=== PATIENT | male | born 1960 | race Caucasian/White ===

== ENCOUNTER 2020-07-18 11:06 | Inpatient (IN) | payer OTHER, SELFPAY ==
[~2020-07-18] VITALS: Ht 165.1 cm; Wt 110.2 kg
[2020-07-18 11:09] VITALS: BP 137/85
--- NOTE | 2020-07-18 11:38 | NUR ---
resident MD bedside for examination
--- NOTE | 2020-07-18 11:43 | NUR ---
60 Y.O presents to the ED with SOB. Pt reports went to physician for swelling of bilateral lower extremeties and MD told pt to come to the ED. Pt bilateral lower extremeties are swollen x2 and pitting +1. SOB when laying flat, trouble sleeping, and upon exertion. Pt dry non-productive cough, lungs clear on auscultation. AAOx4. denies c/p. PMH: hypertension, heart murmur, gout Allergies: nka
[2020-07-18] MEDS ORDERED: ASPIRIN 325 MG TAB PO ONE (11:50)
--- NOTE | 2020-07-18 11:55 | NUR ---
labor representative at bedside drawing blood
--- NOTE | 2020-07-18 11:57 | NUR ---
RISSA and resident MD at bedside for examination
[2020-07-18] MEDS ORDERED: FUROSEMIDE 40 MG/4 ML VIAL IVP SCH (12:00)
--- NOTE | 2020-07-18 12:03 | NUR ---
heraclio swabbed acquired, given to [facility]anj[facility] lab
--- NOTE | 2020-07-18 12:04 | NUR ---
xray at bedside
[2020-07-18 12:09] LABS: BASOPHILS % (AUTO) 0.3 % (0.0-2.0); EOSINOPHILS # (AUTO) 0.2 K/uL (0-0.4); EOSINOPHILS % (AUTO) 3.2 % (0.0-4.0); HEMATOCRIT 43.2 % (36-52); HEMOGLOBIN 14.2 g/dL (12.0-18.0); LYMPHOCYTES # (AUTO) 1.5 K/uL (2.0-11.5); LYMPHOCYTES % (AUTO) 19.2 % (20.5-51.1); MEAN CORPUSCULAR HEMOGLOBIN 32 pg (27-31); MEAN CORPUSCULAR HGB CONC 33 g/dL (33-37); MEAN CORPUSCULAR VOLUME 96.2 fL (80-94); MONOCYTES # (AUTO) 0.7 K/uL (0.8-1.0); MONOCYTES % (AUTO) 8.9 % (1.7-9.3); NEUTROPHILS # (AUTO) 5.2 K/uL (1.8-7.7); NEUTROPHILS % (AUTO) 68.4 % (42.2-75.2); PLATELET COUNT (AUTO) 180 K/uL (140-450); RED BLOOD CELL COUNT(AUTO) 4.49 MIL/uL (4.20-6.10); RED CELL DISTRIBUTION WIDTH 15.1 % (11.6-13.7); WHITE BLOOD COUNT (AUTO) 7.6 K/uL (4.8-10.8)
--- NOTE | 2020-07-18 12:14 | NUR ---
pt ambulated to the bathroom for urine collection
[2020-07-18 12:23] LABS: ALBUMIN 3.7 g/dL (3.4-5.0); ANION GAP 13.1 (8-16); CARBON DIOXIDE 26.7 mmol/L (21-32); CREATININE 1.4 mg/dL (0.6-1.3); POTASSIUM 3.8 mmol/L (3.5-5.1); TOTAL BILIRUBIN 1.1 mg/dL (0.0-1.0)
[2020-07-18] MEDS ORDERED: NITROGLYCERIN 0.4 MG TAB SL ONE ×2 (12:35→13:10)
--- NOTE | 2020-07-18 12:39 | NUR ---
RT at bedside for bipap
[2020-07-18] MEDS ORDERED: HYDR-4004 PO (12:43)
[2020-07-18] MEDS ORDERED: ATOR80TA27 PO (12:43)
[2020-07-18] MEDS ORDERED: LOSA100T1 PO (12:44)
[2020-07-18] MEDS ORDERED: ZYL300 PO (12:44)
--- NOTE | 2020-07-18 12:50 | NUR ---
pt family updated on pt condition in the lobby. Talked to and son. contact son if there are questions, and follow-up on condition: Chris
--- NOTE | 2020-07-18 13:00 | NUR ---
notified of lactic acid and high bp
[2020-07-18 13:08] LABS: BARBITURATE, URINE NEGATIVE ng/ml (NEG <=200); BENZODIAZEPINE, URINE NEGATIVE ng/mL (NEG <=200); CANNABINOID, URINE NEGATIVE ng/mL (NEG <=50); COCAINE, URINE NEGATIVE ng/mL (NEG <=300); OPIATE, URINE NEGATIVE ng/mL (NEG <=2000); PHENCYCLIDINE SCREEN,URINE NEGATIVE ng/mL (NEG <=25)
[2020-07-18] MEDS ORDERED: PIPERACILLIN/TAZOBACTAM 3.375 GM in DEXTROSE 5% 50 ML IV ONE (13:10)
[2020-07-18] MEDS ORDERED: PIPERACILLIN/TAZOBACTAM 3.375 GM VIAL IV ONE (13:12)
[2020-07-18] MEDS ORDERED: HEPARIN PER PHARMACY MC PRN (14:15)
[2020-07-18] MEDS ORDERED: hePARIN / DEXT 5% PREMIX 250 ML IV ONE (14:15)
--- NOTE | 2020-07-18 15:28 | NUR ---
PT GOING TO CT VIA GURNEY, DISCONNECTED FROM BIPAP MACHINE, AND HEPARIN DRIP
--- NOTE | 2020-07-18 15:33 | NUR ---
report called to LILIBETH Gautam for pt
--- NOTE | 2020-07-18 15:37 | NUR ---
RECEIVED REPORT FROM ER NURSE TARIK. PATIENT PENDING TRANSFER TO UNIT. CC: SOB SENT STRAIGHT FROM PCP OFFICE; DX: NEW ONSET CHF; HX: HTN, GOUT, HEART MURMUR; NKA. PATIENT IS AMBULATORY W/ BLE SWELLING AND PITTING EDEMA 1+; AOx4, ON BIPAP AT FIO2 30%. PATIENT IS CONTINENT, LAC 20G IV. V/S: BP 109/76, RR 18, PULSE 139, TEMP 97.8, SPO2 100, DENIES PAIN. PATIENT HAS DRY NONPRODUCTIVE COUGH. PENDING PATIENT ARRIVAL TO UNIT.
[2020-07-18 15:45] VITALS: BP 141/103
--- NOTE | 2020-07-18 15:45 | NUR ---
PATIENT ARRIVED ON UNIT. PATIENT ORIENTED TO ROOM, CALL LIGHT W/IN REACH, PATIENT GIVEN ORAL CARE AND HYGIENE ESSENTIALS. V/S OBTAINED BP: 141/103, RR 17, PULSE 135, TEMP 97.8, SPO2 99. HEAD TO TOE ASSESSMENT PERFORMED. PATIENT BLE SWELLING, REDNESS, PITTING EDEMA 1+. NO OEN WOUNDS, SKIN TEARS, BRUISING. PATIENT DENIES PAIN. MRSA SWAB OBTAINED. RT AT BEDSIDE W/ PATIENT INSTRUCTIONS FOR BIPAP. SAFETY MEASURES IN PLACE. WILL CONTINUE TO MONITOR.
--- NOTE | 2020-07-18 15:52 | NUR ---
attached pt back to the heparin drip and the bipap machine
--- NOTE | 2020-07-18 16:08 | NUR ---
Patient will be admitted to care of Dr. Constantino. Admited to TELEMETRY. Will go to room 112A. Belongings list completed. Report to LILIBETH MICHAUD.
--- NOTE | 2020-07-18 16:28 | NUR ---
PT TRANSFERRED TO FLOOR WITH BIPAP AND PLACED BACK ON BIPAP IN HIS NEW ROOM. NO DISTRESS NOTED. PT PLACED ON BIPAP FOR FLUID ASSESSMENT NOT RESP DISTRESS.
[2020-07-18] MEDS ORDERED: hydrALAZINE 20 MG/ML VIAL IVP PRN (17:00)
--- NOTE | 2020-07-18 17:43 | NUR ---
ADMINISTERED PRN MEDS FOR BP 141/103. PATIENT TOLERATED WELL. MEDICATION EDUCATION PROVIDED. PATIENT VERBALIZED UNDERSTANDING. PATIENT DENIES PAIN. STATES FEELING FINE. PATIENT IS ABLE TO MAKE NEEDS KNOWN. SAFETY MEASURES IN PLACE. WILL CONTINUE TO MONITOR.
[2020-07-18] MEDS: PIPERACILLIN/TAZOBACTAM 3.375 GM in DEXTROSE 5% 50 ML IV SCH (18:59)
--- NOTE | 2020-07-18 19:35 | NUR ---
RECEIVED PT AAOX4 , ON BI PAP - O2SAT WNL . ST ON TELE MONITOR . DENIES ANY PAIN AT THIS TIME . IV SITES INTACT AND PATENT . ON HEP DRIP - TOLERATING NO S/SX OF BLEEDING NOTED AT THIS TIME - THE NEXT PTT IS 2120 WILL REGULATE THE HEP DRIP PER PROTOCOL . SAFETY MEASURES IN PLACE - CALL LIGHT / URINAL WITHIN REACH. WILL CONT. TO MONITOR .
--- NOTE | 2020-07-18 19:35 | NUR ---
BEDSIDE ENDORSEMENT PROVIDED TO NIGHTSHIFT NURSE FOR CONTINUITY OF CARE.
[2020-07-18 20:00] VITALS: BP 124/83
--- NOTE | 2020-07-18 20:13 | NUR ---
PT IN NO DISTRESS, PT SATURATION 100% ON MINIMAL SETTINGS, REMOVED BI-PAP FOR PT TO EAT, PT PLACED ON A 2L N/C, PT SATURATION MAINTAINED AT 98%. WILL KEEP PT OFF BI-PAP IF SATURATION MAINTAINS ABOVE 92%. WILL CONTINUE TO MONITOR, INFORMED RN OF BI-PAP IN ROOM ON STANDBY
[2020-07-18] MEDS ORDERED: ONDANSETRON 4 MG/2 ML VIAL IM/IVP PRN (20:30)
[2020-07-18] MEDS ORDERED: MORPHINE SULFATE 2 MG/ML SYR IVP PRN (20:30)
[2020-07-18] MEDS ORDERED: ACETAMINOPHEN 325 MG TAB PO PRN (20:30)
[2020-07-18] MEDS ORDERED: DOCUSATE SODIUM 100 MG GELCAP PO PRN (20:30)
[2020-07-18] MEDS ORDERED: HYDROcodone/APAP 5/325 MG 1 TAB TAB PO PRN (20:30)
[2020-07-18] MEDS ORDERED: POTASSIUM CHLORIDE 40 MEQ, LIDOCAINE MPF 1% 25 MG in NACL 0.9% 250 ML IV PRN (20:30)
[2020-07-18] MEDS ORDERED: SODIUM PHOS / POTASSIUM PHOS 1 PKT PDR PO PRN (20:30)
[2020-07-18] MEDS ORDERED: MAG SULF 2000 MG/WATER PREMIX 50 ML IV PRN (20:30)
[2020-07-18 20:58] LABS: MAGNESIUM 1.6 mg/dL (1.8-2.4)
[2020-07-18] MEDS: METOPROLOL 25 MG TAB PO SCH (21:33)
[2020-07-18] MEDS: hePARIN / DEXT 5% PREMIX 250 ML IV SCH (21:34)
--- NOTE | 2020-07-18 21:34 | NUR ---
REDUCE HEP DRIP REGULATION BY 2 - SO - 13 ML /HR .
[2020-07-18 21:49] LABS: APPEARANCE,URINE CLEAR (CLEAR); BILIRUBIN,URINE NEGATIVE (NEGATIVE); BLOOD, URINE TRACE-I (NEGATIVE); COLOR,URINE YELLOW (YELLOW); LEUKOCYTE ESTERASE ,URINE NEGATIVE (NEGATIVE); NITRITE, URINE NEGATIVE (NEGATIVE); UGLUCOSE NEGATIVE (NEGATIVE)
[2020-07-18] MEDS ORDERED: MAG SULF 2000 MG/WATER PREMIX 100 ML IV ONE (22:05)
[2020-07-18 22:18] LABS: RBC,URINE 0-5 /HPF (0-5); WBC,URINE 0-5 /HPF (0-5)
[2020-07-18 22:19] LABS: HYALINE CASTS, URINE 0-5 /LPF (None Seen)
[2020-07-18] MEDS ORDERED: DEXTROSE 50% 50 ML SYR IVP PRN (22:35)
--- NOTE | 2020-07-18 23:51 | NUR ---
THE FRIST 2GRM MAG RIDER CONSUMED . FF UP W/ 2ND BAG ( 2 GRMS ) MAG RIDER . WILL CONT. TO MONITOR .
[2020-07-19] VITALS: BP 124/84
[2020-07-19] MEDS: PIPERACILLIN/TAZOBACTAM 3.375 GM in DEXTROSE 5% 50 ML IV SCH ×2 (01:10→06:37)
--- NOTE | 2020-07-19 01:36 | NUR ---
UPDATING DR. SANCHEZ - PT IS STILL ST 130'S INSPITE OF LOPRESSOR GIVEN , ALTHOUGH PT IS RESTING ON BED COMFORTABLY , NO COMPLAIN MADE , CLEAR U.O , BP 124/ 83 , O2 SAT WNL . Addendum: 07/19/20 at 0143 by Afua Leigh RN PER DR. SANCHEZ IF THE PT IS STILL ST FOR ANOTHER HOUR - GIVE METOPROLOL 5MG/ TIV PUSH .
[2020-07-19] MEDS ORDERED: METOPROLOL 5 MG/5 ML VIAL IV ONE (02:35)
[2020-07-19] MEDS ORDERED: METOPROLOL 5 MG/5 ML VIAL IV SCH (02:50)
--- NOTE | 2020-07-19 03:20 | NUR ---
PT STILL ST ON TELE MONITOR - WILLL GIVE LOPRESSOR 5MG TIV ORDERED BY DR. SANCHEZ . DENIES ANY PAIN . RESTING ON BED .
[2020-07-19 04:00] VITALS: BP 129/85
[2020-07-19] MEDS: hePARIN / DEXT 5% PREMIX 250 ML IV SCH ×2 (05:00→10:22)
--- NOTE | 2020-07-19 05:04 | NUR ---
HEP DRIP RATE REDUCED PER PTT PROTOCOL . WILLL CONT. TO MONITOR .
[2020-07-19] MEDS: BLOOD GLUCOSE MONITORING 1 DEV DEV FS SCH ×4 (05:30→21:46)
--- NOTE | 2020-07-19 06:00 | NUR ---
RESTING ON BED , STILL ST - METROPROLOL GIVEN WHILE AGO - WILL TO MONITOR , NO COMPLAIN MADE .
[2020-07-19 06:34] LABS: HEMOGLOBIN 12.8 g/dL (12.0-18.0)
[2020-07-19 06:56] LABS: BASOPHILS % (AUTO) 0.4 % (0.0-2.0); EOSINOPHILS # (AUTO) 0.1 K/uL (0-0.4); EOSINOPHILS % (AUTO) 0.9 % (0.0-4.0); HEMATOCRIT 38.2 % (36-52); LYMPHOCYTES # (AUTO) 0.7 K/uL (2.0-11.5); MEAN CORPUSCULAR HEMOGLOBIN 32 pg (27-31); MEAN CORPUSCULAR HGB CONC 34 g/dL (33-37); MEAN CORPUSCULAR VOLUME 94.6 fL (80-94); MONOCYTES # (AUTO) 0.7 K/uL (0.8-1.0); MONOCYTES % (AUTO) 8.3 % (1.7-9.3); NEUTROPHILS # (AUTO) 6.5 K/uL (1.8-7.7); NEUTROPHILS % (AUTO) 81.4 % (42.2-75.2); PLATELET COUNT (AUTO) 166 K/uL (140-450); RED BLOOD CELL COUNT(AUTO) 4.04 MIL/uL (4.20-6.10); RED CELL DISTRIBUTION WIDTH 15.1 % (11.6-13.7)
[2020-07-19 07:23] LABS: ANION GAP 11.1 (8-16); CARBON DIOXIDE 27.9 mmol/L (21-32); CREATININE 1.3 mg/dL (0.6-1.3)
--- NOTE | 2020-07-19 07:30 | NUR ---
RECEIVED REPORT FROM NIGHT NURSE PATIENT IS AAOX4 ON 2 LPM OXYGEN VIA NC SATURATION AT 99%. SKIN INTACT PT ON BEDREST. LATEST BLOOD SUGAR 123 MG/DL USES THE URINAL, IV INTACT ON LEFT AC WITH HEPARIN DRIP AT 11 UNITS AND RIGHT AC TKO.SCHEDULED APTT AT 0933. SAFETY MEASURES IN PLACE AND CALL LIGHT WITHIN REACH. WILL CONTINUE TO MONITOR.
--- NOTE | 2020-07-19 07:38 | NUR ---
ENDORSED TO TAMRA NURSE - PT - STABLE . Addendum: 07/19/20 at 0744 by Afua Leigh RN GAVE AN UPDATE TO DR SANCHEZ THRU TXT - PT - STILL ST - ENDORSED TO JOSE RAMON TO WAIT THE FURTHER ORDER OF DR Doc SANCHEZ .
--- NOTE | 2020-07-19 07:49 | NUR ---
RECEIVED CRITICAL LAB TROPONIN 0.363 MD AWARE.
[2020-07-19 08:00] VITALS: BP 117/81
--- NOTE | 2020-07-19 08:25 | NUR ---
PATIENT HAS BEEN SCREENED AND CATEGORIZED MODERATE NUTRITION RISK. PATIENT WILL BE SEEN WITHIN 3-5 DAYS OF ADMISSION. 07/20/20 07/22/[address]
[2020-07-19] MEDS: METOPROLOL 25 MG TAB PO SCH ×2 (08:48→21:48)
[2020-07-19] MEDS: ATORVASTATIN 80 MG TAB PO SCH (08:48)
--- NOTE | 2020-07-19 08:50 | NUR ---
MEDICATION DUE GIVEN CHECK VITAL SIGNS PRIOR TO MEDICATION BP 117/81 MT 134 PT DENIES CHEST PAIN AND SOB, PT IS STABLE. WILL CONTINUE TO MONITOR.
[2020-07-19] MEDS ORDERED: LOSARTAN 50 MG TAB PO SCH (09:00)
--- NOTE | 2020-07-19 10:22 | NUR ---
CHANGE HEPARIN DRIP 250 ML AR A RATE OF 11 ML/HR. INFUSING WELL.
--- NOTE | 2020-07-19 10:30 | NUR ---
ECHOCARDIOGRAM TAKEN PT IS STABLE.
--- NOTE | 2020-07-19 10:47 | NUR ---
RECEIVE CRITICAL LAB APTT 61.2 NO CHANGED IN HEPARIN DRIP.
[2020-07-19] MEDS: METOPROLOL 5 MG/5 ML VIAL IV PRN ×2 (11:08→17:32)
--- NOTE | 2020-07-19 11:08 | NUR ---
LOPRESSOR 5 MG IV GIVEN BP 121/82 WI 134. PATIENT IS SLEEPING
[2020-07-19] MEDS ORDERED: FUROSEMIDE 40 MG TAB PO SCH (11:10)
--- NOTE | 2020-07-19 11:30 | NUR ---
BLOOD SUGAR 153 MG/DL INSULIN COVERAGE 2 UNITS GIVEN AND LASIX 40 MG GIVEN.
[2020-07-19] MEDS: INSULIN LISPRO SLIDING SCALE 100 UNITS/ML VIAL SUBQ PRN (11:36)
[2020-07-19 12:00] VITALS: BP 102/72
--- NOTE | 2020-07-19 12:08 | NUR ---
RE ASSESSED PT VITAL SIGNS BP 114/88 FL 133.
[2020-07-19 16:00] VITALS: BP 123/81
--- NOTE | 2020-07-19 16:06 | NUR ---
BLOOD SUGAR 121 MG/DL NO INSULIN COVERAGE GIVEN.
--- NOTE | 2020-07-19 16:18 | NUR ---
RECEIVE CRITICAL VALUE FROM LAB APTT 65.1 2ND THERAPEUTIC LEVEL NO CHANGED IN HEPARIN DRIP. NEXT APTT DRAW 07/20/20 AT 1600.
--- NOTE | 2020-07-19 17:00 | NUR ---
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
[2020-07-19] MEDS ORDERED: DIGOXIN 0.25 MG/ML AMP IV SCH (17:20)
--- NOTE | 2020-07-19 17:34 | NUR ---
LOPRESSOR 5 MG IV Q4H PRN GIVEN CHECK VITAL SIGNS BP 119/80 PA 134.
--- NOTE | 2020-07-19 18:00 | NUR ---
DIGOXIN 0.25 MG/ML AMP IVP GIVEN CHECK VITAL SIGNS PRIOR TO MEDICATION BP 115/68 NC 124.
--- NOTE | 2020-07-19 19:10 | NUR ---
ENDORSED TO NIGHT NURSE FOR CONTINUITY OF CARE. PT IS STABLE.
--- NOTE | 2020-07-19 19:10 | NUR ---
RECEIVING PATIENT FROM AM NURSE FOR CONTINUITY OF CARE. PATIENT ON TELE MONITOR. A/A/O X4. RESPIRATORY EVEN AND UNLABORED, ON 2L OXYGEN VIA NC, O2 SAT 95%, NO SIGN OF RESPIRATORY DISTRESS NOTED. SKIN WARM, DRY, NON-DIAPHORETIC. IV ON LEFT AC 20G AND RIGHT AC 20G, SALINE LOCK, PATIENT AND INTACT. PATIENT DENIES ANY PAIN OR DISCOMFORT. ABLE TO MAKE NEEDS KNOWN. PLAN OF CARE DISCUSSED, PATIENT VERBALIZED UNDERSTANDING. PRECAUTION IN PLACE. WILL CONTINUE TO MONITOR.
[2020-07-19 20:00] VITALS: BP 114/55
--- NOTE | 2020-07-19 21:46 | NUR ---
BLOOD SUGAR CHECK 105, NO INSULIN GIVEN. SCHEDULE MEDICATIONS GIVEN WITH EDUCATION, PATIENT VERBALIZED UNDERSTANDING. PATIENT TOLERATED WELL. NO SIGN OF DISTRESS NOTED. CALL LIGHT WITHIN REACH. WILL CONTINUE TO MONITOR.
[2020-07-19] MEDS: AMIODARONE 200 MG TAB PO SCH (21:49)
[2020-07-19] MEDS: ENOXAPARIN 80 MG/0.8 ML SYR SUBQ SCH (21:50)
--- NOTE | 2020-07-19 22:31 | NUR ---
PT AWAKE IN [place]I-[place]RAWAL WATCHING TV ON 2LNC. PT DENIES SOB W/ NO DISTRESS NOTED AT THIS TIME WILL CONTINUE TO MONITOR.
[2020-07-20] VITALS: BP 120/71
--- NOTE | 2020-07-20 | NUR ---
PATIENT IS SLEEPING, CHEST RISE AND FALL NOTED, O2 SAT 100% ON 2L OXYGEN. NO SIGN OF RESPIRATORY DISTRESS NOTED. CALL LIGHT WITHIN REACH. WILL CONTINUE TO MONITOR.
--- NOTE | 2020-07-20 02:00 | NUR ---
ROUND CHECK. PATIENT IS SLEEPING, CHEST RISE AND FALL NOTED. NO SIGN OF DISTRESS NOTED. PRECAUTION IN PLACE. CALL LIGHT WITHIN REACH. WILL CONTINUE TO MONITOR.
[2020-07-20 04:00] VITALS: BP 129/68
--- NOTE | 2020-07-20 04:00 | NUR ---
ROUND CHECK. PATIENT IS WAKE, WATCHING TV. NO SIGN OF DISTRESS NOTED. DENIES ANY PAIN OR DISCOMFORT. CALL LIGHT WITHIN REACH. WILL CONTINUE TO MONITOR.
--- NOTE | 2020-07-20 06:00 | NUR ---
ROUND CHECK. PATIENT IS AWAKE, WATCHING TV. NO SIGN OF DISTRESS NOTED. CALL LIGHT WITHIN REACH. WILL CONTINUE TO MONITOR.
[2020-07-20] MEDS: BLOOD GLUCOSE MONITORING 1 DEV DEV FS SCH ×4 (06:39→21:00)
--- NOTE | 2020-07-20 06:39 | NUR ---
BLOOD SUGAR 89. NO INSULIN GIVEN. PATIENT IS NO SIGN OF DISTRESS NOTED. CALL LIGHT WITHIN REACH. WILL CONTINUE TO MONITOR.
[2020-07-20 06:52] LABS: BASOPHILS % (AUTO) 0.3 % (0.0-2.0); EOSINOPHILS # (AUTO) 0.2 K/uL (0-0.4); EOSINOPHILS % (AUTO) 2.4 % (0.0-4.0); HEMATOCRIT 38.1 % (36-52); HEMOGLOBIN 12.5 g/dL (12.0-18.0); LYMPHOCYTES # (AUTO) 0.9 K/uL (2.0-11.5); LYMPHOCYTES % (AUTO) 13.8 % (20.5-51.1); MEAN CORPUSCULAR HEMOGLOBIN 32 pg (27-31); MEAN CORPUSCULAR HGB CONC 33 g/dL (33-37); MEAN CORPUSCULAR VOLUME 96.8 fL (80-94); MONOCYTES # (AUTO) 0.6 K/uL (0.8-1.0); MONOCYTES % (AUTO) 9.3 % (1.7-9.3); NEUTROPHILS # (AUTO) 4.8 K/uL (1.8-7.7); NEUTROPHILS % (AUTO) 74.2 % (42.2-75.2); PLATELET COUNT (AUTO) 146 K/uL (140-450); RED BLOOD CELL COUNT(AUTO) 3.93 MIL/uL (4.20-6.10); RED CELL DISTRIBUTION WIDTH 15.4 % (11.6-13.7); WHITE BLOOD COUNT (AUTO) 6.5 K/uL (4.8-10.8)
[2020-07-20 07:02] LABS: CARBON DIOXIDE 29.3 mmol/L (21-32); CREATININE 1.2 mg/dL (0.6-1.3); POTASSIUM 4.3 mmol/L (3.5-5.1)
--- NOTE | 2020-07-20 07:05 | NUR ---
ENDORSED PATIENT TO AM NURSE FOR CONTINUITY OF CARE. PATIENT IS STABLE.
--- NOTE | 2020-07-20 07:10 | NUR ---
RECEIVED REPORT FROM NIGHT NURSE PT IS AAOX4 ON BEDREST , WITH 2 LPM OXYGEN VIA NC, SKIN INTACT LATEST BLOOD SUGAR 89 MG/DL AND NO BOWEL MOVEMENT, IV INTACT ON LEFT AC AND RIGHT AC, FLUID RESTRICTION OF 1.5 LITERS AND STRICT INPUT AND OUTPUT. SAFETY MEASURES IN PLACE AND CALL LIGHT WITHIN REACH. WILL CONTINUE TO MONITOR.
[2020-07-20 08:00] VITALS: BP 122/61
[2020-07-20] MEDS: FUROSEMIDE 40 MG/4 ML VIAL IVP SCH ×2 (08:36→16:26)
[2020-07-20] MEDS: METOPROLOL 25 MG TAB PO SCH ×2 (08:37→20:53)
[2020-07-20] MEDS: lisinopriL 5 MG TAB PO SCH (08:37)
[2020-07-20] MEDS: AMIODARONE 200 MG TAB PO SCH ×2 (08:38→20:53)
[2020-07-20] MEDS: ATORVASTATIN 80 MG TAB PO SCH (08:38)
[2020-07-20] MEDS: ENOXAPARIN 80 MG/0.8 ML SYR SUBQ SCH ×2 (08:46→20:55)
--- NOTE | 2020-07-20 08:47 | NUR ---
MEDICATION DUE GIVEN CHECK VITAL SIGNS BP 122/61 NV 117, PT FEELS BETTER AND NO DISTRESS NOTED AND NO CHEST PAINS.. WILL CONTINUE TO MONITOR.
[2020-07-20] MEDS: INSULIN LISPRO SLIDING SCALE 100 UNITS/ML VIAL SUBQ PRN (11:19)
--- NOTE | 2020-07-20 11:23 | NUR ---
BLOOD SUGAR 161 MG/DL INSULIN COVERAGE 2 UNITS GIVEN.
[2020-07-20 13:32] VITALS: BP 104/62
--- NOTE | 2020-07-20 14:00 | NUR ---
MADE ROUND PATIENT IS RESTING HEART RATE AT 95 AND NO DISTRESS NOTED.
[2020-07-20 16:00] VITALS: BP 129/55
--- NOTE | 2020-07-20 16:21 | NUR ---
BLOOD SUGAR 109 MG/DL NO INSULIN COVERAGE GIVEN.
--- NOTE | 2020-07-20 16:40 | NUR ---
MEDICATION DUE GIVEN CHECK VITAL SIGNS PRIOR TO MEDICATION BP 129/55 IA 73
[2020-07-20] MEDS: DIGOXIN 0.25 MG/ML AMP IV SCH (17:46)
--- NOTE | 2020-07-20 17:46 | NUR ---
DIGOXIN 0.25MG/ML AMPULE 1ML GIVEN IV CHECK VITAL SIGNS PRIOR TO MEDICATION BP 127/66 OH 45. PT IS STABLE.
--- NOTE | 2020-07-20 18:47 | NUR ---
RE ASSESSED PT VITAL SIGNS BP 132/66 NE 61. PT IS STABLE AND NO DISTRESS NOTED.
--- NOTE | 2020-07-20 19:14 | NUR ---
ENDORSED TO NIGHT NURSE FOR CONTINUITY OF CARE. PT IS STABLE.
--- NOTE | 2020-07-20 19:15 | NUR ---
RECEIVING PATIENT FROM AM NURSE FOR CONTINUITY OF CARE. PATIENT IS ON TELE MONITOR. A/A/O X4. RESPIRATORY EVEN AND UNLABORED, ON 2L OXYGEN VIA NC, NO SIGN OF DISTRESS NOTED. SKIN WARM, DRY, NON-DIAPHORETIC. IV ON RIGHT AC 20G SALINE LOCK, AND LEFT AC 20G SALINE LOCK, PATENT AND INTACT. PATIENT DENIES ANY PAIN OR DISCOMFORT, DENIES ANY SHORTNESS OF BREATH OR TROUBLE BREATHING. ABLE TO MAKE NEEDS KNOWN. PLAN OF CARE DISCUSSED, PATIENT VERBALIZED UNDERSTANDING. PRECAUTION IN PLACE. CALL LIGHT WITHIN REACH. WILL CONTINUE TO MONITOR.
--- NOTE | 2020-07-20 19:20 | NUR ---
TITRATED PT DOWN TO ROOM AIR, PT WAS SATURATING 97% OR ABOVE ON 2L NASAL CANNULA. REMOVED CANNULA, PT SATURATION MAINTAINED ABOVE 95%. NOTIFIED RN, WILL CONTINUE TO MONITOR
[2020-07-20 20:00] VITALS: BP 112/62
--- NOTE | 2020-07-20 21:00 | NUR ---
BLOOD SUGAR CHECK 105, NO INSULIN GIVEN. SCHEDULE MEDICATIONS GIVEN WITH EDUCATION, PATIENT VERBALIZED UNDERSTANDING. WILL GIVE SCHEDULE DIGOXIN LATER SINCE THE AM NURSE GAVE IT LATE. PATIENT TOLERATED WELL. NO SIGN OF DISTRESS NOTED. CALL LIGHT WITHIN REACH. WILL CONTINUE TO MONITOR.
--- NOTE | 2020-07-20 22:00 | NUR ---
PATIENT IS AWAKE, WATCHING TV. NO SIGN OF DISTRESS NOTED. CALL LIGHT WITHIN REACH. WILL CONTINUE TO MONITOR.
[2020-07-21] VITALS: BP 112/71
--- NOTE | 2020-07-21 00:45 | NUR ---
PATIENT IS AWAKE, AMBULATES INDEPENDENTLY WITH STEADY GAIT TO BATHROOM. NO SIGN OF DISTRESS NOTED. WILL CONTINUE TO MONITOR.
--- NOTE | 2020-07-21 02:04 | NUR ---
ROUND CHECK. PATIENT IS SLEEPING, CHEST RISE AND FALL NOTED. NO SIGN OF RESPIRATORY DISTRESS NOTED, O2 SAT 92%. PRECAUTION IN PLACE. CALL LIGHT WITHIN REACH. WILL CONTINUE TO MONITOR.
[2020-07-21] MEDS: DIGOXIN 0.25 MG/ML AMP IV SCH (02:09)
--- NOTE | 2020-07-21 02:09 | NUR ---
SCHEDULE DIGOXIN 0.25MG GIVEN WITH EDUCATION. PATIENT VERBALIZED UNDERSTANDING. BP 127/75, HR 66, O2 SAT 98% ON 2L OXYGEN VIA NC. PATIENT IS STABLE. NO SIGN OF DISTRESS NOTED. CALL LIGHT WITHIN REACH. WILL CONTINUE TO MONITOR.
[2020-07-21 04:00] VITALS: BP 157/76
--- NOTE | 2020-07-21 04:00 | NUR ---
ROUND CHECK. PATIENT IS AWAKE, WATCHING TV. NO SIGN OF RESPIRATORY DISTRESS NOTED. CALL LIGHT WITHIN REACH. WILL CONTINUE TO MONITOR.
[2020-07-21 06:28] LABS: ANION GAP 10.1 (8-16); CARBON DIOXIDE 31.9 mmol/L (21-32); CREATININE 1.3 mg/dL (0.6-1.3)
[2020-07-21 06:42] LABS: BASOPHILS % (AUTO) 0.4 % (0.0-2.0); EOSINOPHILS # (AUTO) 0.2 K/uL (0-0.4); EOSINOPHILS % (AUTO) 2.4 % (0.0-4.0); HEMATOCRIT 39.9 % (36-52); LYMPHOCYTES # (AUTO) 0.9 K/uL (2.0-11.5); MEAN CORPUSCULAR HEMOGLOBIN 32 pg (27-31); MEAN CORPUSCULAR HGB CONC 33 g/dL (33-37); MEAN CORPUSCULAR VOLUME 96.6 fL (80-94); MONOCYTES # (AUTO) 0.6 K/uL (0.8-1.0); MONOCYTES % (AUTO) 8.8 % (1.7-9.3); NEUTROPHILS # (AUTO) 5.1 K/uL (1.8-7.7); NEUTROPHILS % (AUTO) 75.4 % (42.2-75.2); PLATELET COUNT (AUTO) 161 K/uL (140-450); RED BLOOD CELL COUNT(AUTO) 4.13 MIL/uL (4.20-6.10); RED CELL DISTRIBUTION WIDTH 14.9 % (11.6-13.7); WHITE BLOOD COUNT (AUTO) 6.7 K/uL (4.8-10.8)
[2020-07-21] MEDS: BLOOD GLUCOSE MONITORING 1 DEV DEV FS SCH (06:53)
--- NOTE | 2020-07-21 06:53 | NUR ---
BLOOD SUGAR 106. NO INSULIN NEEDS TO COVER. PATIENT IS AWAKE, NO SIGN OF RESPIRATORY DISTRESS NOTED. CALL LIGHT WITHIN REACH. WILL CONTINUE TO MONITOR.
--- NOTE | 2020-07-21 07:15 | NUR ---
ENDORSED PATIENT TO AM NURSE FOR CONTINUITY OF CARE. PATIENT IS STABLE.
--- NOTE | 2020-07-21 07:36 | NUR ---
REC'D REPORT FROM CLIENT SERVICES SPECIALIST NURSE. PT A/Ox4, 2L NC. LUNGS CLEAR BILATERALLY, DIMINISHED R. LUNG. BOWEL SOUNDS PRESENT, +1 PITTING EDEMA ON X[place]. LOWER EXTREMITIES. L.AC 20G AND R. AC 20G DRY,CLEAN, NO SIGN OF PHLEBITIS. SL. PT IS ABLE TO MAKE NEEDS KNOWN. ALL SAFETY MEASURES IN PLACE.
[2020-07-21 08:00] VITALS: BP 154/89
[2020-07-21] MEDS ORDERED: LISI-648 PO (08:09)
[2020-07-21] MEDS ORDERED: APIX5TAB PO (08:09)
[2020-07-21] MEDS ORDERED: DIGO0.1211 PO (08:09)
[2020-07-21] MEDS ORDERED: AMIO200T10 PO (08:09)
[2020-07-21] MEDS ORDERED: LIP80 PO (08:09)
[2020-07-21] MEDS ORDERED: METO25TA PO (08:09)
[2020-07-21] MEDS ORDERED: FURO-570 PO (08:09)
[2020-07-21] MEDS ORDERED: DIGOXIN 0.125 MG TAB PO SCH (09:00)
[2020-07-21] MEDS: lisinopriL 5 MG TAB PO SCH (09:10)
[2020-07-21] MEDS: AMIODARONE 200 MG TAB PO SCH (09:10)
[2020-07-21] MEDS: FUROSEMIDE 40 MG/4 ML VIAL IVP SCH (09:10)
[2020-07-21] MEDS: ATORVASTATIN 80 MG TAB PO SCH (09:11)
[2020-07-21] MEDS: METOPROLOL 25 MG TAB PO SCH (09:11)
[2020-07-21] MEDS: ENOXAPARIN 80 MG/0.8 ML SYR SUBQ SCH (09:12)
--- NOTE | 2020-07-21 09:21 | NUR ---
ADMINISTERED MEDICATIONS PER MD ORDER, MOA AND SIDE EFFECTS DISCUSSED WITH PT WHO VERBALIZED UNDERSTANDING. PT TOLERATED MEDICATION ADMINISTRATION WELL. WILL CONTINUE TO MONITOR. PT AT BEDSIDE.
[2020-07-21 10:42] VITALS: BP 154/89
--- NOTE | 2020-07-21 11:20 | NUR ---
PT DISCHARGED VIA WHEELCHAIR. ID BAND AND IV CATHETER REMOVED, INTACT. PT DISCHARGE INSTRUCTIONS DISCUSSED WITH PATIENT. MEDICATIONS REVIEWED AND DISCUSSED WITH PT INCLUDING MOA AND SIDE EFFECTS. DISCUSSED THE IMPORTANCE OF MAKING AN APPOINTMENT WITH DR. MCDONNELL WITHIN 3 BUSINESS DAYS, CONTACT INFORMATION PRINTED ON DISCHARGE PAPERWORK. DIET AND EXERCISE DISCUSSED WITH PT, NOT TO BEGIN EXTREME REGIMEN UNTIL CONSULTED WITH DR HORAN. PT VERBALIZED UNDERSTANDING. PT STABLE UPON DISCHARGE.
== END 2020-07-21 11:20 | disposition home or self-care (01) | DRG 280 ==
LOC: MED 11:06 → MTU 13:48
PROVIDERS: ADMIT Hospitalist; ATTEND Hospitalist
DX: I13.0 Hypertensive heart and chronic kidney disease with heart failure and stage 1 through stage 4 chronic kidney disease, or unspecified chronic kidney disease (principal); N17.0 Acute kidney failure with tubular necrosis; I21.A1 Myocardial infarction type 2; I50.21 Acute systolic (congestive) heart failure; Z68.41 Body mass index [BMI] 40.0-44.9, adult; I48.92 Unspecified atrial flutter; R65.10 Systemic inflammatory response syndrome (SIRS) of non-infectious origin without acute organ dysfunction; E87.2 Acidosis; Z20.822 Contact with and (suspected) exposure to COVID-19; E11.22 Type 2 diabetes mellitus with diabetic chronic kidney disease; M10.9 Gout, unspecified; E78.5 Hyperlipidemia, unspecified; E83.42 Hypomagnesemia; E66.9 Obesity, unspecified
CPT/HCPCS: 36415; 71045; 71275; 80048; 80053; 80305; 81001; 82948; 83036; 83605; 83735; 83880; 84100; 84484; 85025; 85730; 87040; 87081; 87086; 93005; 94660; 96365; 96375; 97116; 99291; J0360; J1160; J1644; J1650; J1940; J2543; J3475; J3490; J7060; Q9967